=== PATIENT | female | born 1970 | race Caucasian/White ===

== ENCOUNTER 2017-05-20 08:00 | Outpatient (CLI) | payer OTHER | END 2017-05-20 08:01 | disposition home or self-care (01) | LOC: BICMAMMO 08:00 | PROVIDERS: ATTEND Family Medicine | DX: Z12.31 Encounter for screening mammogram for malignant neoplasm of breast (principal) | CPT/HCPCS: 77063; 77067; G0202 ==

== ENCOUNTER 2017-06-29 08:59 | Outpatient (CLI) | payer OTHER | END 2017-06-29 09:00 | disposition home or self-care (01) | LOC: BICMAMMO 08:59 | PROVIDERS: ATTEND Family Medicine | DX: N63.20 Unspecified lump in the left breast, unspecified quadrant (principal); R92.1 Mammographic calcification found on diagnostic imaging of breast | CPT/HCPCS: G0279 ==

== ENCOUNTER 2017-10-28 19:56 | Emergency (ER) | payer OTHER ==
[2017-10-28 20:57] LABS: #Basophils 0.1 thou/uL (0.0-0.2); #Eosinphils 0.1 thou/uL (0.0-0.7); #Lymphocytes 1.9 thou/uL (1.20-3.40); #Monocytes 0.7 thou/uL (0.11-0.59); #Neutrophils 6.2 thou/uL (1.40-6.50); %Basophils 0.7 % (0.0-1.0); %Eosinophils 0.9 % (0.0-10.0); %Lymphocytes 20.7 % (21.0-51.0); %Neutrophils 69.7 % (42.0-75.0); Hemoglobin 14.9 g/dL (12.0-16.0); Mean Corpuscular HGB CONC 33.9 g/dL (32.0-36.0); Mean Corpuscular Hemoglobin 30.9 pg (27.0-31.0); Mean Corpuscular Volume 91.2 fl (81.0-99.0); Mean Platelet Volume 9.2 fL (7.4-10.4); Platelet Count 254 thou/uL (130-400); RBC Distribution Width 12.8 % (11.5-14.5); Red Blood Cell (RBC) Count 4.83 mill/uL (4.20-5.40); White Blood Cell (WBC) Count 8.9 thou/uL (4.8-10.8)
[2017-10-28 21:07] LABS: Prothrombin Time 13.4 SEC (12.0-14.7)
[2017-10-28 21:08] LABS: PTT 26.8 SEC (22.9-36.1)
[2017-10-28 21:14] LABS: ALT (SGPT) 18 U/L (8-55); AST (SGOT) 19 U/L (5-34); Albumin 3.9 g/dL (3.5-5.0); Alkaline Phosphatase 110 U/L (40-150); Anion Gap 12 mmol/L (10-20); BUN (Urea Nitrogen) 5 mg/dL (7.0-18.7); Bilirubin, Total 0.9 mg/dL (0.2-1.2); Calc. Creatinine Clearance 0 mL/min (70-130); Calcium 9.2 mg/dL (7.8-10.44); Carbon Dioxide 22 mmol/L (22-29); Chloride 106 mmol/L (98-107); Estimated GFR-MDRD 80; Glucose 109 mg/dL (70-105); Protein, Total 6.9 g/dL (6.0-8.3); Sodium 136 mmol/L (136-145)
--- NOTE | 2017-10-28 21:58 | ULT ---
LEFT LOWER EXTREMITY VENOUS ULTRASOUND WITH DOPPLER 10/28/17 HISTORY: Left lower extremity posterior knee pain. COMPARISON: None. TECHNIQUE: Mckoy scale, color flow, doppler imaging with spectral waveform analysis in the left lower extremity s ystem. FINDINGS: There is compressibility, presence of flow and augmentation in the common femoral vein, femoral vein and popliteal vein. There is flow in the great saphenous vein, profunda vein and posterior tibial vei n. IMPRESSION: No evidence of thrombus in the left lower extremity deep venous system. POS: YANG
== END 2017-10-28 22:04 | disposition home or self-care (01) ==
LOC: SCSER 19:56
DX: M79.662 Pain in left lower leg (principal); R60.0 Localized edema; E03.9 Hypothyroidism, unspecified; Z79.899 Other long term (current) drug therapy
CPT/HCPCS: 36415; 80053; 85025; 85610; 85730

== ENCOUNTER 2018-01-20 15:00 | Outpatient (CLI) | payer OTHER | END 2018-01-20 15:01 | disposition home or self-care (01) | LOC: BICULT 15:00 | PROVIDERS: ATTEND Family Medicine | DX: N92.0 Excessive and frequent menstruation with regular cycle (principal); N83.202 Unspecified ovarian cyst, left side; R93.8 Abnormal findings on diagnostic imaging of other specified body structures | CPT/HCPCS: 76856; 93976 ==

== ENCOUNTER 2020-09-27 16:39 | Observation (INO) | payer OTHER ==
[~2020-09-27 16:39] MED LIST: Iopamidol-370 76% 500 ML 1 ML ONE
[2020-09-27 20:39] VITALS: BMI 27.3
[2020-09-27] MEDS ORDERED: Ondansetron ODT 4 MG TAB PO PRN (20:44)
[2020-09-27] MEDS ORDERED: Acetaminophen 325 MG TAB PO PRN (20:44)
[2020-09-27] MEDS ORDERED: Bisacodyl 10 MG SUPP PR PRN (20:44)
[2020-09-27] MEDS ORDERED: Senokot S 8.6-50 MG TAB PO PRN (20:44)
[2020-09-27] MEDS ORDERED: Zolpidem Tartrate 5 MG TAB PO PRN (20:44)
[2020-09-27] MEDS ORDERED: Guaifenesin DM 100-10/5 ML UDCUP PO PRN (20:44)
[2020-09-27] MEDS ORDERED: Loperamide HCl 2 MG CAP PO PRN (20:44)
[2020-09-27] MEDS ORDERED: Ondansetron PF 4 MG/2 ML Vial IVP PRN (20:44)
[2020-09-27] MEDS ORDERED: Calcium Carbonate 500 MG ChewTAB PO PRN (20:44)
[2020-09-27] MEDS ORDERED: Sodium Chloride 0.9% 1,000 ML IV SCH (20:45)
[2020-09-27] MEDS ORDERED: Nicotine 21 MG PATCH TD PRN (21:00)
[2020-09-27 21:57] LABS: SARS-CoV-2 NAA Rapid Test Not Detected (NotDetected)
[2020-09-27] MEDS: Famotidine 20 MG TAB PO SCH (22:54)
[2020-09-27] MEDS: Ketorolac Tromethamine 30 MG/ML VIAL IVP PRN (23:19)
[2020-09-27] MEDS ORDERED: Cyclobenzaprine 10 MG TAB PO PRN (23:32)
[2020-09-27] MEDS ORDERED: Dicyclomine 20 MG TAB PO PRN ×2 (23:32→23:34)
[2020-09-27] MEDS ORDERED: Promethazine 25 MG TAB PO PRN (23:32)
[2020-09-27] MEDS ORDERED: tiZANidine HCl 4 MG TAB PO SCH (23:45)
[2020-09-28 04:41] LABS: #Basophils 0.1 thou/uL (0.0-0.2); #Eosinphils 0.1 thou/uL (0.0-0.7); #Lymphocytes 2.4 thou/uL (1.20-3.40); #Monocytes 0.5 thou/uL (0.11-0.59); #Neutrophils 3.3 thou/uL (1.40-6.50); %Basophils 1.5 % (0.0-1.0); %Eosinophils 1.6 % (0.0-10.0); %Lymphocytes 37.9 % (21.0-51.0); Hemoglobin 13.3 g/dL (12.0-16.0); Mean Corpuscular HGB CONC 31.2 g/dL (32.0-36.0); Mean Corpuscular Hemoglobin 29.9 pg (27.0-31.0); Mean Corpuscular Volume 95.9 fL (78.0-98.0); Mean Platelet Volume 10.1 fL (7.4-10.4); Platelet Count 172 thou/uL (130-400); RBC Distribution Width 12.6 % (11.5-14.5); Red Blood Cell (RBC) Count 4.46 mill/uL (4.20-5.40); White Blood Cell (WBC) Count 6.4 thou/uL (4.8-10.8)
[2020-09-28 05:13] LABS: ALT (SGPT) 15 U/L (8-55); AST (SGOT) 11 U/L (5-34); Albumin 3.5 g/dL (3.5-5.0); Alkaline Phosphatase 89 U/L (40-110); Anion Gap 9 mmol/L (10-20); BUN (Urea Nitrogen) 11 mg/dL (7.0-18.7); Bilirubin, Total 0.4 mg/dL (0.2-1.2); Calc. Creatinine Clearance 103 mL/min (70-130); Calcium 9.7 mg/dL (7.8-10.44); Carbon Dioxide 23 mmol/L (22-29); Chloride 111 mmol/L (98-107); Globulin 2.3 g/dL (2.4-3.5); Glucose 86 mg/dL (70-105); Potassium 4.1 mmol/L (3.5-5.1); Protein, Total 5.8 g/dL (6.0-8.3); Sodium 139 mmol/L (136-145)
[2020-09-28] MEDS: Ketorolac Tromethamine 30 MG/ML VIAL IVP PRN (05:29)
[2020-09-28 05:35] LABS: Thyroid Stimulating Hormone 2.6902 uIU/mL (0.35-4.94)
[2020-09-28] MEDS ORDERED: Levothyroxine Sodium 125 MCG TAB PO SCH (06:00)
[2020-09-28] MEDS: HYDROcodone/Acetaminophen 5/325 mg Tablet PO PRN ×2 (08:01→12:01)
[2020-09-28] MEDS: Famotidine 20 MG TAB PO SCH (08:01)
[2020-09-28] MEDS ORDERED: Metoprolol Tartrate 50 MG TAB PO SCH (09:00)
[2020-09-28 09:12] LABS: Free T4 (Free Thyroxine) 0.89 ng/dL (0.70-1.48)
[2020-09-28 11:51] VITALS: BP 124/66; TEMP 97.9
[2020-09-28] MEDS ORDERED: tiZANidine HCl 4 MG TAB PO SCH (21:00)
== END 2020-09-28 14:27 | disposition home or self-care (01) ==
LOC: ERS 16:39 → T4-A 18:40 → 2SE 22:09
PROVIDERS: ADMIT Internal Medicine; ATTEND Internal Medicine
DX: R51.9 Headache, unspecified (principal); F17.200 Nicotine dependence, unspecified, uncomplicated; I10 Essential (primary) hypertension; E04.2 Nontoxic multinodular goiter; R91.8 Other nonspecific abnormal finding of lung field; I65.23 Occlusion and stenosis of bilateral carotid arteries; Z86.79 Personal history of other diseases of the circulatory system; Z79.899 Other long term (current) drug therapy; Z88.0 Allergy status to penicillin; Z20.822 Contact with and (suspected) exposure to COVID-19
CPT/HCPCS: 36415; 70496; 70498; 70551; 80053; 84439; 84443; 84481; 85025; 96374; 96376; G0378; J1885; Q9967; U0002

== ENCOUNTER 2021-06-18 07:49 | Outpatient (CLI) | payer BC | END 2021-06-18 07:50 | disposition home or self-care (01) | LOC: SCSMRI 07:49 | PROVIDERS: ATTEND Nurse Practitioner Family | DX: M50.122 Cervical disc disorder at C5-C6 level with radiculopathy (principal); M48.02 Spinal stenosis, cervical region | CPT/HCPCS: 72141 ==

== ENCOUNTER 2021-07-07 07:48 | Outpatient (CLI) | payer BC | END 2021-07-07 07:49 | disposition home or self-care (01) | LOC: LABBT 07:48 | PROVIDERS: ATTEND Surgery | DX: Z01.812 Encounter for preprocedural laboratory examination (principal); M50.10 Cervical disc disorder with radiculopathy, unspecified cervical region; M48.02 Spinal stenosis, cervical region; Z20.822 Contact with and (suspected) exposure to COVID-19 | CPT/HCPCS: 80048; 85027; 85610; 85730; 86850; 86900; 86901; U0003; U0005 ==

== ENCOUNTER 2021-07-11 06:07 | Observation (INO) | payer BC ==
[2021-07-07 09:26] LABS: Hemoglobin 14.6 g/dL (12.0-15.5); Mean Corpuscular HGB CONC 31.7 g/dL (32.0-36.0); Mean Corpuscular Hemoglobin 30.6 pg (27.0-33.0); Mean Corpuscular Volume 96.4 fl (81.6-98.3); Mean Platelet Volume 11.2 fl (7.4-10.4); Platelet Count 259 10x3/uL (150-450); RBC Distribution Width 13.2 % (11.5-14.5); Red Blood Cell (RBC) Count 4.77 10x6/uL (3.90-5.03); White Blood Cell (WBC) Count 7.9 10x3/uL (3.5-10.5)
[2021-07-07 09:27] LABS: INR-International Normal Ratio 0.9; PTT 26.3 sec (22.0-33.0)
[2021-07-07 09:52] LABS: Anion Gap 14 mmol/L (10-20); BUN (Urea Nitrogen) 8 mg/dL (7.0-18.7); Calc. Creatinine Clearance 0 mL/min (70-130); Calcium 9.9 mg/dL (7.8-10.44); Carbon Dioxide 25 mmol/L (22-29); Chloride 104 mmol/L (98-107); Glucose 88 mg/dL (70-105); Potassium 4.7 mmol/L (3.5-5.1); Sodium 138 mmol/L (136-145)
[2021-07-07 13:00] VITALS: BMI 36.5
[2021-07-07 17:30] LABS: SARS-CoV-2 PCR by NAA Not Detected (NotDetected)
[2021-07-11] MEDS ORDERED: Levofloxacin 500 mg/D5W 100 ml Premix Bag ONE (06:21)
[2021-07-11] MEDS ORDERED: Thrombin 5000 UNITS/5 ML VIAL ONE (06:47)
[2021-07-11] MEDS ORDERED: Clindamycin/D5W 900 mg/50 ml Premix Bag ONE (07:11)
[2021-07-11] MEDS ORDERED: Fentanyl 250 MCG/5 ML VIAL ONE ×2 (07:14→09:42)
[2021-07-11] MEDS ORDERED: HYDROmorphone 0.5 MG/0.5 ML SYRINGE ONE (07:15)
[2021-07-11] MEDS ORDERED: Midazolam HCl 2 mg/2 ml Vial ONE (07:26)
[2021-07-11] MEDS ORDERED: Rocuronium Bromide 10 MG/ML (10ML VIAL) ONE (07:35)
[2021-07-11] MEDS ORDERED: GLYCOPYRROLATE/PF 0.2 MG/ML VIAL ONE (07:35)
[2021-07-11] MEDS ORDERED: Dexamethasone 20 MG/5 ML VIAL ONE (07:35)
[2021-07-11] MEDS ORDERED: PROPOFOL 200 MG/20 ML VIAL ONE (07:35)
[2021-07-11] MEDS ORDERED: Lidocaine 1% PF 5 ML VIAL ONE (07:35)
[2021-07-11] MEDS ORDERED: Ketorolac Tromethamine 30 MG/ML VIAL ONE (07:35)
[2021-07-11] MEDS ORDERED: Promethazine HCl 25 MG/ML VIAL IVPB PRN (09:10)
[2021-07-11] MEDS ORDERED: Ondansetron HCl/PF 4 MG/2 ML Vial IVP PRN (09:10)
[2021-07-11] MEDS ORDERED: Meperidine HCl/PF 25 MG/ML VIAL SLOW IVP PRN (09:10)
[2021-07-11] MEDS ORDERED: Promethazine HCl 25 MG/ML VIAL IM PRN (09:10)
[2021-07-11] MEDS ORDERED: HYDROmorphone 2 MG/ML VIAL SLOW IVP PRN (09:10)
[2021-07-11] MEDS ORDERED: Acetaminophen 325 MG TAB PO PRN (09:39)
[2021-07-11] MEDS ORDERED: Acetaminophen/Codeine 30-300mg Tablet PO PRN (09:39)
[2021-07-11] MEDS ORDERED: Dicyclomine 20 MG TAB PO PRN (09:41)
[2021-07-11] MEDS ORDERED: Promethazine 25 MG TAB PO PRN (09:41)
[2021-07-11] MEDS ORDERED: HYDROmorphone 2 MG/ML VIAL ONE (10:00)
[2021-07-11] MEDS ORDERED: Morphine 4 MG/ML VIAL SLOW IVP PRN (10:04)
[2021-07-11] MEDS ORDERED: NALOXONE HCL SL PRN (10:17)
[2021-07-11] MEDS ORDERED: BUPRENORPHINE HCL SL PRN (10:17)
[2021-07-11] MEDS ORDERED: Promethazine HCl 25 MG/ML VIAL ONE (10:44)
[2021-07-11] MEDS: HYDROcodone/Acetaminophen 7.5/325 mg Tablet PO PRN ×3 (12:13→23:23)
[2021-07-11] MEDS: Cyclobenzaprine 10 MG TAB PO PRN (12:52)
[2021-07-11] MEDS: traMADol HCl 50 MG TAB PO PRN ×2 (14:25→20:47)
[2021-07-11] MEDS: Clindamycin/D5W 900 MG in Premix Bag 1 BAG IVPB SCH ×2 (14:26→15:07)
[2021-07-11] MEDS: Sodium Chloride 0.9% 1,000 ML IV SCH ×2 (15:32→23:17)
[2021-07-11] MEDS ORDERED: Bupropion 150 MG XL TAB PO SCH (16:30)
[2021-07-11] MEDS: Metoprolol Tartrate 50 MG TAB PO SCH (20:47)
[2021-07-11] MEDS ORDERED: tiZANidine HCl 4 MG TAB PO SCH (21:00)
[2021-07-12] MEDS: Clindamycin/D5W 900 MG in Premix Bag 1 BAG IVPB SCH ×2 (01:11→08:30)
[2021-07-12] MEDS: HYDROcodone/Acetaminophen 7.5/325 mg Tablet PO PRN ×2 (05:30→09:38)
[2021-07-12] MEDS ORDERED: Levothyroxine Sodium 125 MCG TAB PO SCH (06:00)
[2021-07-12] MEDS: Cyclobenzaprine 10 MG TAB PO PRN (07:25)
[2021-07-12] MEDS ORDERED: Bupropion 150 MG XL TAB PO SCH (09:00)
[2021-07-12] MEDS: Metoprolol Tartrate 50 MG TAB PO SCH (10:18)
[2021-07-12 10:19] VITALS: BP 106/68; TEMP 98.2
== END 2021-07-12 10:15 | disposition home or self-care (01) ==
LOC: SDC 06:07 → SURG A 09:37
PROVIDERS: ADMIT Surgery; ATTEND Surgery
PROC: 0RG10A0 Fusion of Cervical Vertebral Joint with Interbody Fusion Device, Anterior Approach, Anterior Column, Open Approach (ICD-10-PCS; principal; 2021-07-11)
DX: M50.022 Cervical disc disorder at C5-C6 level with myelopathy (principal); M50.122 Cervical disc disorder at C5-C6 level with radiculopathy; M48.02 Spinal stenosis, cervical region; R00.0 Tachycardia, unspecified; E03.9 Hypothyroidism, unspecified; K21.9 Gastro-esophageal reflux disease without esophagitis; Z87.891 Personal history of nicotine dependence; Z79.899 Other long term (current) drug therapy; Z88.0 Allergy status to penicillin; Z20.822 Contact with and (suspected) exposure to COVID-19
CPT/HCPCS: 76000; 80048; 85027; 85610; 85730; 86850; 86900; 86901; 96365; 96375; C1713; C1776; G0378; J1100; J1170; J1885; J1956; J2250; J2270; J2550; J2704; J3010; J3490; U0003; U0005

== ENCOUNTER 2021-11-14 08:20 | Outpatient (CLI) | payer BC | END 2021-11-14 08:21 | disposition home or self-care (01) | LOC: BICMAMMO 08:20 | PROVIDERS: ATTEND Family Medicine | DX: N63.20 Unspecified lump in the left breast, unspecified quadrant (principal) | CPT/HCPCS: 77066; G0279 ==

== ENCOUNTER 2022-04-29 19:30 | Outpatient (CLI) | payer BC | END 2022-04-29 19:31 | disposition home or self-care (01) | LOC: SLEEPLAB 19:30 | PROVIDERS: ATTEND Family Medicine | DX: G47.33 Obstructive sleep apnea (adult) (pediatric) (principal); G47.9 Sleep disorder, unspecified; R06.83 Snoring; I10 Essential (primary) hypertension; K21.9 Gastro-esophageal reflux disease without esophagitis; G47.00 Insomnia, unspecified | CPT/HCPCS: 95810 ==

== ENCOUNTER 2022-07-03 13:07 | Outpatient (CLI) | payer BC | END 2022-07-03 13:08 | disposition home or self-care (01) | LOC: BICCT 13:07 | PROVIDERS: ATTEND Family Medicine | DX: Z12.2 Encounter for screening for malignant neoplasm of respiratory organs (principal); F17.210 Nicotine dependence, cigarettes, uncomplicated | CPT/HCPCS: 71271 ==

== ENCOUNTER 2022-08-07 10:55 | Outpatient (CLI) | payer BC | END 2022-08-07 10:56 | disposition home or self-care (01) | LOC: BICMRI 10:55 | PROVIDERS: ATTEND Family Medicine | DX: M25.511 Pain in right shoulder (principal); S43.431A Superior glenoid labrum lesion of right shoulder, initial encounter ==

== ENCOUNTER 2023-11-12 08:40 | Outpatient (CLI) | payer BC | END 2023-11-12 08:41 | disposition home or self-care (01) | LOC: MRI 08:40 | PROVIDERS: ATTEND Physician Assistant | DX: M77.41 Metatarsalgia, right foot (principal); S92.354A Nondisplaced fracture of fifth metatarsal bone, right foot, initial encounter for closed fracture; R93.7 Abnormal findings on diagnostic imaging of other parts of musculoskeletal system ==